=== PATIENT | female | born 1940 | race Caucasian/White ===

== ENCOUNTER 2016-09-07 14:42 | Emergency (ER) | payer MEDICARE, BC ==
[2016-09-07 15:36] LABS: BASOPHILS 0.2 % (0-2); EOSINOPHILS 1.8 % (0-7); HEMATOCRIT 47.3 % (36.0-48.0); HEMOGLOBIN 15.6 g/dL (12-16); IMMATURE GRANULOCYTES 0.3 % (0-5); LYMPHOCYTES 23.9 % (15-50); MCH 29.7 pg (26.0-34.0); MCV 89.9 fL (80.0-100.0); NEUTROPHILS 67.8 % (40-80); PLATELET COUNT 199 10x3/uL (130-400); RBC 5.26 10x6/uL (4.00-5.40); RDW 16.1 % (11.5-14.5)
[2016-09-07 15:44] LABS: ALBUMIN 3.6 g/dL (3.4-5.0); ANION GAP 14.2 mmol/L (8-16); BILIRUBIN - TOTAL 0.41 mg/dL (0.2-1.3); CALCIUM 8.9 mg/dL (8.5-10.1); CARBON DIOXIDE 26.7 mmol/L (21.0-32.0); POTASSIUM - SERUM 3.9 mmol/L (3.5-5.1); PROTEIN - SERUM 7.1 g/dL (6.4-8.2)
[2016-09-07 17:36] LABS: APPEARANCE HAZY (CLEAR); BILIRUBIN NEGATIVE (NEGATIVE); COLOR YELLOW (YELLOW); GLUCOSE NEGATIVE (NEGATIVE); KETONE NEGATIVE (NEGATIVE); LEUKOCYTE ESTERASE 1+ (NEGATIVE); NITRITE NEGATIVE (NEGATIVE); PROTEIN NEGATIVE (NEGATIVE); SPECIFIC GRAVITY 1.015 (1.005-1.020); UROBILINOGEN NORMAL (NORMAL)
[2016-09-07 17:39] LABS: BACTERIA MODERATE /hpf (NONE SEEN); EPITHELIAL CELLS 0-5 /hpf (0-5); HYALINE CAST 0-5 /lpf (NONE SEEN); RED CELLS - URINE 0-5 /hpf (0-5)
== END 2016-09-07 20:45 | disposition home or self-care (01) ==
LOC: D.ER 14:42
PROVIDERS: Emergency Medicine
DX: E86.0 Dehydration (principal); R55 Syncope and collapse; I10 Essential (primary) hypertension; J45.909 Unspecified asthma, uncomplicated

== ENCOUNTER → 2016-09-20 10:22 | Outpatient (CLI) | payer MEDICARE, BC ==
[2012-07-04 06:51] VITALS: BMI 33.3
== END | disposition home or self-care (01) ==
LOC: D.MRI 10:22
DX: R55 Syncope and collapse (principal)

== ENCOUNTER 2017-09-05 19:25 | Emergency (ER) | payer MEDICARE, BC ==
[2012-07-04 06:51] VITALS: BMI 33.3
[2017-09-05 20:08] LABS: BASOPHILS 0.1 % (0-2); EOSINOPHILS 0.2 % (0-7); HEMATOCRIT 41.6 % (36.0-48.0); HEMOGLOBIN 13.8 g/dL (12-16); IMMATURE GRANULOCYTES 0.3 % (0-5); LYMPHOCYTES 9.6 % (15-50); MCH 29.4 pg (26.0-34.0); MCHC 33.2 g/dL (31.0-37.0); MCV 88.7 fL (80.0-100.0); MEAN PLATELET VOLUME 9.9 fL (7.4-10.4); MONOCYTES 10.1 % (2-11); NEUTROPHILS 79.7 % (40-80); PLATELET COUNT 195 10x3/uL (130-400); RBC 4.69 10x6/uL (4.00-5.40); RDW 13.6 % (11.5-14.5); WBC 11.6 10x3/uL (4.8-10.8)
[2017-09-05 20:29] LABS: ALBUMIN 3.1 g/dL (3.4-5.0); ANION GAP 15.6 mmol/L (8-16); BILIRUBIN - TOTAL 0.45 mg/dL (0.2-1.3); CALCIUM 8.2 mg/dL (8.5-10.1); CARBON DIOXIDE 24.8 mmol/L (21.0-32.0); CREATININE - SERUM 1.3 mg/dL (0.6-1.3); POTASSIUM - SERUM 3.4 mmol/L (3.5-5.1); PROTEIN - SERUM 6.8 g/dL (6.4-8.2)
[2017-09-05 21:24] LABS: APPEARANCE HAZY (CLEAR); COLOR YELLOW (YELLOW)
[2017-09-05 21:25] LABS: BILIRUBIN NEGATIVE (NEGATIVE); GLUCOSE NEGATIVE (NEGATIVE); KETONE NEGATIVE (NEGATIVE); NITRITE POSITIVE (NEGATIVE); PROTEIN TRACE mg/dL (NEGATIVE); UROBILINOGEN NORMAL (NORMAL)
[2017-09-05 21:26] LABS: BACTERIA MANY /hpf (NONE SEEN); EPITHELIAL CELLS 0-5 /hpf (0-5); RED CELLS - URINE 0-5 /hpf (0-5); WHITE CELLS - URINE 25-50 /hpf (0-5)
== END 2017-09-05 22:42 | disposition home or self-care (01) ==
LOC: D.ER 19:25
PROVIDERS: Emergency Medicine; Physician Assistant
DX: R55 Syncope and collapse (principal); R53.1 Weakness; I10 Essential (primary) hypertension; E87.6 Hypokalemia; N39.0 Urinary tract infection, site not specified

== ENCOUNTER 2018-11-03 13:37 | Emergency (ER) | payer MEDICARE, BC ==
[~2018-11-03] VITALS: Ht 167.6 cm; Wt 94.5 kg
[2018-11-03 13:40] VITALS: Ht 167.6 cm; Wt 94.5 kg
[2018-11-03] MEDS ORDERED: LISINOPRIL20 MG PO (13:47)
[2018-11-03] MEDS ORDERED: SINGULAIR10 MG PO (13:48)
[2018-11-03] MEDS ORDERED: HYDROCHLOROTH12.5 M1 PO (13:48)
[2018-11-03] MEDS ORDERED: BAYER CHEWABLE81 MG PO (13:49)
[2018-11-03] MEDS ORDERED: VITAMIN D31000 UNIT PO (13:49)
[2018-11-03] MEDS ORDERED: POTASSIUM CHLO10 ME1 PO (13:50)
[2018-11-03] MEDS ORDERED: VITAMIN B-12100 MCG PO (13:50)
[2018-11-03] MEDS ORDERED: ASCORBIC ACID500 MG PO (13:50)
[2018-11-03 14:28] LABS: APPEARANCE HAZY (CLEAR); COLOR YELLOW (YELLOW)
[2018-11-03 14:29] LABS: BILIRUBIN NEGATIVE (NEGATIVE); GLUCOSE NEGATIVE (NEGATIVE); KETONE NEGATIVE (NEGATIVE); NITRITE POSITIVE (NEGATIVE); PROTEIN 1+ mg/dL (NEGATIVE); UROBILINOGEN NORMAL (NORMAL)
[2018-11-03 14:30] LABS: BACTERIA MANY /hpf (NONE SEEN); EPITHELIAL CELLS 0-5 /hpf (0-5); MUCUS <1+ /lpf (NONE SEEN)
[2018-11-03 14:47] LABS: BASOPHILS 0.1 % (0-2); EOSINOPHILS 0.5 % (0-7); HEMATOCRIT 43.5 % (36.0-48.0); HEMOGLOBIN 14.7 g/dL (12-16); IMMATURE GRANULOCYTES 0.2 % (0-5); LYMPHOCYTES 14.1 % (15-50); MCH 29.2 pg (26.0-34.0); MCHC 33.8 g/dL (31.0-37.0); MCV 86.3 fL (80.0-100.0); MEAN PLATELET VOLUME 9.8 fL (7.4-10.4); MONOCYTES 5.3 % (2-11); NEUTROPHILS 79.8 % (40-80); PLATELET COUNT 230 10x3/uL (130-400); RBC 5.04 10x6/uL (4.00-5.40); RDW 13.2 % (11.5-14.5); WBC 9.2 10x3/uL (4.8-10.8)
[2018-11-03 15:04] LABS: ALBUMIN 3.5 g/dL (3.4-5.0); BILIRUBIN - TOTAL 0.38 mg/dL (0.2-1.3); CALCIUM 9.5 mg/dL (8.5-10.1); CARBON DIOXIDE 29.1 mmol/L (21.0-32.0); CREATININE - SERUM 1.2 mg/dL (0.6-1.3); POTASSIUM - SERUM 4.1 mmol/L (3.5-5.1); PROTEIN - SERUM 7.3 g/dL (6.4-8.2)
[2018-11-03] MEDS ORDERED: MACROBID100 MG PO (15:05)
[2018-11-03 15:54] VITALS: BP 134/79
[2018-11-03 15:59] LABS: CREATINE KINASE 66 UL (21-215)
[2018-11-03 16:05] LABS: TROPONIN-I < 0.017 ng/mL (0.000-0.060)
== END 2018-11-03 15:55 | disposition home or self-care (01) ==
LOC: D.ER 13:37
PROVIDERS: Emergency Medicine
DX: N39.0 Urinary tract infection, site not specified (principal); R55 Syncope and collapse; I10 Essential (primary) hypertension